=== PATIENT | male | born 1995 ===

== ENCOUNTER 2021-03-20 13:00 | Emergency (ER) | payer OTHER, SELFPAY ==
[2021-03-20 13:05] VITALS: BP 127/81; PULSE 81; RESP 18; O2SAT 100; BMI 29.7
--- NOTE | 2021-03-20 13:39 | ED_ITS ---
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 All of this is stemming from a break-up that he is having with his girlfriend. He states that a couple days ago he had a lot of very intense emotions. He states he was very anxious. He did grab a kitchen knife and made very superficial cuts to the back of his left arm. He states he is unsure as to why he did this. He was not trying to kill himself. He was just very anxious and was having a panic attack and did not know what to do. He went to medical this morning. He did talk with the [employer] conductor pullman this morning. He states that he feels better after doing this. He states that he is not suicidal currently. Not homicidal. Does have a history of anxiety and depression. Has medications prescribed by his psychiatrist that he started this morning. He also has a follow-up with his psychiatrist on Monday. Related Data Home Medications Medication Instructions Recorded Confirmed fluoxetine 10 mg capsule 10 mg PO DAILY 02/13/19 02/13/19 Allergies Allergy/AdvReac Type Severity Reaction Status Date / Time amoxicillin Allergy Intermediate rash Verified 02/13/19 16:05 Penicillins Allergy Intermediate rash Verified 02/13/19 16:05 Review of Systems Constitutional Constitutional: Reports system reviewed and no additional complaints, except as documented Cardiovascular Cardiovascular: Reports system reviewed and no additional complaints, except as documented Respiratory Respiratory: Reports system reviewed and no additional complaints, except as documented Integumentary/Breasts Skin/Breast: Reports system reviewed and no additional complaints, except as documented Psychiatric Psychiatric: Reports as per HPI Hematologic/Lymphatic On Anticoagulants: No Patient History Medical History Anxiety Depression Social History Smoking Status: Never smoker Smoking Status: Never smoker Substance Use Type: does not use Exam Initial Vital Signs Initial Vital Signs: Vital Signs Pulse Rate 81 03/20/21 13:05 Respiratory Rate 18 03/20/21 13:05 Blood Pressure 127/81 03/20/21 13:05 Pulse Oximetry 100 03/20/21 13:05 Const General: cooperative, healthy appearing and comfortable HENMT Head: normal to inspection and normocephalic Resp Effort & Inspection: normal respiratory effort Cardio Rate: regular rate Skin Other: Superficial abrasions to the left forearm. Neuro General: patient alert, patient awake and patient oriented x3 Extrem General: normal to inspection and capillary refill normal Psych Appearance: grossly normal and well kempt Mental Status: mental status grossly normal Speech and Movement: speech and movement normal Mood: congruent mood Affect: sad Attitude: cooperative Thought Content: normal Judgment: judgment good Course Vital Signs Vital signs: Vital Signs - 8 hr 03/20/21 13:05 Pulse Rate 81 Respiratory Rate 18 Blood Pressure 127/81 Pulse Oximetry 100 MDM - Psych MDM Narrative Medical decision making narrative: Patient is not currently suicidal. Not homicidal. The abrasions on his left arm need no intervention here in the ER. He states that he feels much better after talking with the conductor pullman today. He has an appointment already scheduled with his psychiatrist on Monday. He states that he feels safe to go home and follow-up on Monday. I feel that this is not unreasonable given his situation. He expressed understanding and agreement. Discharge Plan Departure Patient Disposition: Home Clinical Impression: Anxiety, Depression Instructions: Depression Activity Restrictions/Additional Instructions: Recommend that you continue to take all of your medications as directed and keep your scheduled appointment with your mental health provider on Monday. Contact the conductor pullman if needed. Return to the emergency department for any new or worsening symptoms Prescriptions: No Action fluoxetine 10 mg capsule 10 mg PO DAILY RF: 0
== END 2021-03-20 13:43 | disposition home or self-care (01) ==
PROVIDERS: Emergency Provider Emergency Medicine
DX: F41.9 Anxiety disorder, unspecified (principal); F32.9 Major depressive disorder, single episode, unspecified
CPT/HCPCS: 99283